=== PATIENT | male | born 1945 | race Caucasian/White ===

== ENCOUNTER 2024-07-12 06:08 | Day surgery (SDC) | payer MEDICARE, BC, SELFPAY ==
[2024-07-06 14:17] VITALS: BMI 30.9
[2024-07-12 06:22] VITALS: BP 156/92; PULSE 79; RESP 18; TEMP 36.2; O2SAT 98
[2024-07-12] MEDS: LACTATED RINGERS 1000ML 1,000 ML 50 ML IV (06:40)
[2024-07-12 06:47] LABS: POC Glucose,Bedside 145 (70-110)
--- NOTE | 2024-07-12 07:12 | P.PNANES_ITS ---
[facility] Disclaimer: The information contained in this section may have been updated after the patient was seen, as this information can be updated by other users. Medical History Diabetes FH: prostate cancer Cholecystectomy planned Surgical History History of appendectomy History of gastric surgery Family History Father Cancer Mother Diabetes Heart attack Social History (Updated 07/12/24 @ 06:29 by Babs Paredes RN) Smoking Status: Never smoker alcohol intake: never substance use type: denies use current occupational status: employed Travel in the last 8 weeks: None caffeine: Yes Have you lived/traveled outside [place] in past 30 days?: No Contact w/someone who lives/traveled outside US past 30 days?: No Exposure to someone with infectious disease in past 14 days?: No Do you have a fever (greater than 100.4 F or 38 C)?: No Have you tested positive for COVID-19: Yes Exposed to someone with COVID-19 in past 14 days?: No Do you have a sore throat?: No Do you have a cough?: No Do you have any weakness?: No Are you experiencing any nausea/vomitting?: No Do you have any diarrhea?: No Are you experiencing any unusual bleeding?: No Do you have any muscle aches/pain?: No Do you have any abdominal pain?: No Are you experiencing loss of taste or smell?: No [facility] Anesthesia Checklist Patient Identification Patient Identification: Arm Band, Family and Verbal (Name & ) Structural Data Admitted From: Home Planned Operative Procedure/s: Colonoscopy Consent for Planned Operative Procedure(s) Verified: Yes Verified Documents: Surgical Consent and History and Physical NPO Status Verified Time NPO: 02:00 Additional verifications Fingerstick Blood Glucose: 145 Patient : No Anesthesia Reactions: No Cardiovascular Assessment Heart Sounds: S1 & S2 Pulse Rhythm: Irregular Peripheral Edema: No Airway Assessment Mallampati Score:: Class II C-Spine Mobility Assessed: Yes (FROM demonstrated) TMJ Mobility Assessed: Yes Dentition: Good Dentition (Nothing loose per pt.) Neurological Assessment Level of Consciousness: Awake, Alert, Appropriate and Follows Commands Hx Seizures: No Numbness or tingling in extremities: No Anesthesia Plan Anesthesia Risk discussed: Yes Anesthesia Plan: Verified ASA Class: III Anesthesia Type: MAC
--- NOTE | 2024-07-12 07:48 | P.HP_ITS ---
History of Present Illness *Admission Date: 07/12/24 *Reason for visit:: Change in bowel habits/diarrhea *History of present illness: Mr. 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 The examination is deemed medically necessary for diagnostic colonoscopy. The patient has been seen, interviewed and examined prior to the procedure by both myself and the anesthesia provider. [facility] Disclaimer: The information contained in this section may have been updated after the patient was seen, as this information can be updated by other users. Medical History (Updated 07/12/24 @ 07:50 by Alessio Gill II, MD) Diabetes FH: prostate cancer Cholecystectomy planned Surgical History History of appendectomy History of gastric surgery Family History Father Cancer Mother Diabetes Heart attack Social History (Updated 07/12/24 @ 06:29 by Babs Paredes RN) Smoking Status: Never smoker alcohol intake: never substance use type: denies use current occupational status: employed Travel in the last 8 weeks: None caffeine: Yes Have you lived/traveled outside [place] in past 30 days?: No Contact w/someone who lives/traveled outside [place] past 30 days?: No Exposure to someone with infectious disease in past 14 days?: No Do you have a fever (greater than 100.4 F or 38 C)?: No Have you tested positive for COVID-19: Yes Exposed to someone with COVID-19 in past 14 days?: No Do you have a sore throat?: No Do you have a cough?: No Do you have any weakness?: No Are you experiencing any nausea/vomitting?: No Do you have any diarrhea?: No Are you experiencing any unusual bleeding?: No Do you have any muscle aches/pain?: No Do you have any abdominal pain?: No Are you experiencing loss of taste or smell?: No Other Medical History Have you received the Pneumonia Vaccine: Yes Review of Systems Review of Systems Review of systems (narrative): Negative *Cardiovascular Comments: Negative *Gastrointestinal Comments: Negative *Genitourinary Comments: Negative *Musculoskeletal Comments: Negative *Neurologic Comments: Negative Meds Home Medications and Allergies Home Medications ?Medication ?Instructions ?Recorded ?Confirmed ?Type aspirin 81 mg tablet,delayed 81 mg PO DAILY 04/04/24 07/12/24 History release (Adult Low Dose Aspirin) carvedilol 3.125 mg tablet 3.125 mg PO BID 04/04/24 07/12/24 History dapagliflozin propanediol 10 mg 10 mg PO DAILY 04/04/24 07/12/24 History tablet (Farxiga) gabapentin 300 mg capsule 300 mg PO DAILY 04/04/24 07/12/24 History losartan 25 mg tablet 25 mg PO DAILY 04/04/24 07/12/24 History metformin 500 mg tablet,extended 500 mg PO BID 04/04/24 07/12/24 History release 24 hr omeprazole 40 mg capsule,delayed 40 mg PO BID 04/04/24 07/12/24 History release sildenafil 100 mg tablet 100 mg PO DAILY PRN . 04/04/24 07/12/24 History tamsulosin 0.4 mg capsule 0.4 mg PO DAILY 04/04/24 07/12/24 History zolpidem 10 mg tablet 10 mg PO DAILY 04/04/24 07/12/24 History sodium,potassium,mag sulfates 17.5 See Rx Instructions PO .COMPLEX 07/05/24 07/12/24 Rx gram-3.13 gram-1.6 gram oral soln #354 mL (Suprep Bowel Prep Kit) New Prescriptions to Start Prescriptions: Allergies Allergy/AdvReac Type Severity Reaction Status Date / Time No Known Allergies Allergy Verified 07/12/24 06:22 Exam Data for Last 24 hours Vital signs and Labs for Last 24 Hours: Temp Pulse Resp BP Pulse Ox O2 Del Method 97.2 F L 79 18 156/92 H 98 Room Air 07/12/24 06:22 07/12/24 06:22 07/12/24 06:22 07/12/24 06:22 07/12/24 06:22 07/12/24 06:22 Laboratory Results - last 24 hr 07/12/24 06:37: POC Glucose 145 H *Routine HEENT Exam Head: Present normocephalic Eye: Present EOMI and PERRL ENT: Present mucous membranes moist *Routine Neck Exam Neck: Present supple *Routine Respiratory Exam Respiratory: Present CTA bilaterally *Routine Cardiovascular Exam Cardiovascular: Present RRR *Routine Abdominal Exam Abdominal: Present soft and normoactive bowel sounds; Absent tenderness *Routine Rectal Exam Rectal:: deferred *Routine Genitalia Exam Genitalia:: deferred *Routine Extremities Exam Extremities: Absent cyanosis, clubbing or edema *Routine Skin Exam Skin: Present warm; Absent rash *Routine Neurological Exam Neurological: Present alert and oriented X3 Assessment and Plan *Assessment and plan (1) Change in bowel habits: Status: Acute Category: Medical Code(s): R19.4 - Change in bowel habit (2) Diarrhea: Status: Acute Category: Medical Code(s): R19.7 - Diarrhea, unspecified (3) Bloating: Status: Acute Category: Medical Code(s): R14.0 - Abdominal distension (gaseous) (4) Radiation proctitis: Status: Acute Category: Medical Code(s): K62.7 - Radiation proctitis Plan A/P: 1. Change in bowel habits, diarrhea and bloating is the preprocedural diagnosis. The patient will be anesthetized/sedated using MAC sedation. The patient has been seen and examined. Cardiac and lung assessment prior to the examination is stable. Proceed with planned diagnostic colonoscopy
--- NOTE | 2024-07-12 07:51 | P.PCN_ITS ---
[facility] Procedure Note Date: 07/12/24 Time: 08:20 Procedure Note:: Colonoscopy Procedure Report: Colonoscopy with cold snare polypectomy and cold biopsies Endoscopist: Alessio Gill II, MD Referring physician: Amarjit Johnson MD, [address] [id number], [place] [address] Date of Procedure: July 12, 2024 Equipment: Olympus 190 variable stiffness pediatric colonoscope Sedation: MAC sedation Indication: Mr. Tran is a 78-year-old gentleman with the onset of of some right-sided abdominal discomfort, bloating, gassiness and loose stools. 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 He had a colonoscopy in 2021 and had 3 polyps (tubular adenomas x 3) which were removed and given 5-year surveillance interval. The patient can have some explosive diarrhea which was becoming more frequent. He has had increased gassiness. He was seen in the office (Irma RAMOS) and placed on FiberCon and now has bulkier stools. He reports no weight loss or rectal bleeding. His fecal elastase testing showed greater than 800 mcg/g. 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 He did have a small to medium sized hiatal hernia and colonic diverticulosis. His C. difficile testing was negative. He is on omeprazole. Procedure: Prior to the procedure, a history and physical exam was performed, and patient's medications and allergies were reviewed. The risks, benefits and alternatives of the sedation and procedure were discussed with the patient. All questions were answered and informed consent was obtained. The patient was brought to the procedure room. Patient identification and proposed procedure were verified by the physician and the nurse. The patient was placed in a left lateral decubitus position and the scope was passed under direct vision. Throughout the procedure, the patient's blood pressure, pulse, and oxygen saturations were monitored continuously. The colonoscopy was accomplished without difficulty. The patient tolerated the procedure well. Findings: On digital rectal examination there was normal rectal tone. There were no external hemorrhoids. The colonoscope was introduced through the anal canal to the rectum and advanced to the cecum. The ileocecal valve and appendiceal orifice were identified. The scope was advanced a short distance into the ileum which appeared grossly normal. The scope was then withdrawn into the colon. There was a single 4 mm polyp in the cecum removed via cold snare polypectomy. The remaining cecum, ascending and transverse colon and mucosa were grossly normal. Random biopsies were taken from the colon (primarily right colon) to r ule out microscopic colitis. There were scattered diverticuli throughout the descending and sigmoid colon (LEFT colon). Within the distal rectum there were some telangiectasias and evidence of mild radiation proctitis. Upon retroflexion within the rectum there were 2 internal hemorrhoids. The preparation was excellent throughout with Tad Preparation Score of 9. The cecal time was 13 minutes. Impression: 1. Diminutive cecal polyp 2. Left-sided diverticulosis 3. Mild radiation proctitis 4. Grade 2 internal hemorrhoids Plan: I will follow-up the random biopsies. I do feel that the patient is having some functional abdominal pain related to gas and bloating. I also feel that he may have some EPI related symptoms even though fecal elastase testing was normal. He does have an atrophic pancreas on CT scan. I would recommend trial of pancreatic digestive enzymes (Creon). I would also consider dietary management?low FODMAP. If pain persists, would consider neuro modulatory t reatment?low-dose tricyclic.
[2024-07-12 08:01] VITALS: O2SAT 97
[2024-07-12 08:25] VITALS: BP 109/74; PULSE 67; RESP 17; TEMP 36.6; O2SAT 95
[2024-07-12 08:35] VITALS: BP 105/68; PULSE 76; RESP 15; O2SAT 94
[2024-07-12 08:45] VITALS: BP 114/85; PULSE 72; RESP 15; O2SAT 94
[2024-07-12 08:55] VITALS: BP 129/78; PULSE 68; RESP 17; TEMP 36.6; O2SAT 96
== END 2024-07-12 08:57 | disposition home or self-care (01) ==
PROVIDERS: PCP Internal Medicine; Visit Provider Internal Medicine Gastroenterology
PROC: 0DJD8ZZ Inspection of Lower Intestinal Tract, Via Natural or Artificial Opening Endoscopic (ICD-10-PCS; CPT 45378; principal; 2024-07-12 07:30)
DX: R19.4 Change in bowel habit (principal); R19.7 Diarrhea, unspecified; R14.0 Abdominal distension (gaseous); K62.7 Radiation proctitis; K86.89 Other specified diseases of pancreas; K86.81 Exocrine pancreatic insufficiency; R10.9 Unspecified abdominal pain; K58.0 Irritable bowel syndrome with diarrhea; K63.5 Polyp of colon; K57.30 Diverticulosis of large intestine without perforation or abscess without bleeding; K64.1 Second degree hemorrhoids; E11.9 Type 2 diabetes mellitus without complications; Z79.84 Long term (current) use of oral hypoglycemic drugs
CPT/HCPCS: 45380; 45385; 82962; 88305; J7120